=== PATIENT | female | born 1980 | race Caucasian/White ===

== ENCOUNTER → 2022-01-11 | Outpatient (CLI) | payer BC, SELFPAY ==
--- NOTE | 2022-01-11 09:26 | US_ITS ---
STUDY: ULTRASOUND BREAST - LEFT REASON FOR EXAM: Female, 41 years old. Palpable mass TECHNIQUE: Axial and longitudinal images of the LEFT breast were performed with a high resolution ultrasound transducer. # OF IMAGES: 42 COMPARISON: Diagnostic mammogram earlier today FINDINGS: LEFT Breast: Heterogeneous background echotexture. In the inferior left breast there is dense breast parenchyma with several small cysts and dilated ducts most consistent with fibrocystic change. At 6 o''clock, 3 cm from nipple, ultrasound confirms a 7 mm round circumscribed anechoic mass with posterior enhancement consistent with a cyst which is the largest of the cysts visualized.: US/Breast Limited Unilateral IMPRESSION: Ultrasound confirms fibrocystic change corresponding to the patient''s palpable abnormality. However, within this air are segmental pleomorphic calcifications worrisome for ductal carcinoma in situ and therefore correlation with breast MRI is recommended. Ultimately, stereotactic breast biopsy may be required. ASSESSMENT CATEGORY: BIRADS Category 0: Incomplete. Need additional imaging evaluation. A letter regarding these results will be sent to the patient by the facility within 30 days. Electronically Signed: Floyd Brooke MD at 11:45 EDT ,
--- NOTE | 2022-01-11 09:26 | BI_ITS ---
MAMMOGRAPHY - BILATERAL DIAGNOSTIC REASON FOR EXAM: Female, 41 years old. LUMP LEFT BREAST PERTINENT HISTORY: Non-contributory. TECHNIQUE: Digital examination. Mediolateral oblique (MLO) and craniocaudad (CC) views of both breasts were obtained. CAD: CAD was performed on this study. COMPARISON: 06/30/2019 FINDINGS: Breast Composition: The breasts are extremely dense, which lowers the sensitivity of mammography. No dominant mass. No suspicious calcifications in the right breast. Continued segmental pleomorphic calcifications within dense breast parenchyma within the inferior left breast at mid depth corresponding to the patient''s palpable abnormality. This area may have been biopsied in the past but there is no biopsy clip. Correlation with ultrasound is recommended. No other significant abnormalities are identified. BI/DIAG MAMM W/CAD, BILAT IMPRESSION: Further ultrasonographic evaluation recommended, as described above. ASSESSMENT CATEGORY: BIRADS Category 0: Incomplete. Need additional imaging evaluation. A letter regarding these results will be sent to the patient by the facility within 30 days. FOLLOW UP RECOMMENDATION: Ultrasound Recommended. (I) Approximately 10% of breast cancers are not detected by mammography. A normal mammogram should not delay biopsy of a clinically suspicious abnormality. Electronically Signed: Floyd Brooke MD at 10:16 EDT ,
== END | disposition home or self-care (01) ==
LOC: OPBI 09:21
PROVIDERS: PCP Nurse Practitioner; Visit Provider Nurse Practitioner
DX: N63.20 Unspecified lump in the left breast, unspecified quadrant (principal)
CPT/HCPCS: 76642; 77062; 77066; G0279